=== PATIENT | male | born 1950 | race Caucasian/White ===

== ENCOUNTER 2016-05-04 07:03 | Day surgery (SDC) | payer MEDICARE, OTHER ==
[~2016-05-04] VITALS: Ht 170.2 cm; Wt 79.5 kg
[~2016-05-04 07:03] MED LIST: ACETAMINOPHEN500 M1 PO; LIPITOR40 MG PO; PRILOSEC20 MG PO; TYLENOL650 MG PO
[2016-05-04] MEDS ORDERED: LEVOTHYROXINE75 MCG PO (07:33)
[2016-05-04 07:38] VITALS: BP 124/76; Ht 170.2 cm; Wt 79.5 kg
[2016-05-04 08:40] LABS: BASOPHILS 0.4 % (0.0-2.0); EOSINOPHILS 2.4 % (0-7); HEMATOCRIT 45.6 % (42.0-54.0); HEMOGLOBIN 15.5 g/dL (13.5-17.5); IMMATURE GRANULOCYTES 0.1 % (0-5); LYMPHOCYTES 27.9 % (15-50); MCH 32.8 pg (26.0-34.0); MCV 96.6 fL (80.0-100.0); MEAN PLATELET VOLUME 10.1 fL (7.4-10.4); MONOCYTES 10.3 % (2-11); NEUTROPHILS 58.9 % (40-80); PLATELET COUNT 147 10x3/uL (130-400); RBC 4.72 10x6/uL (4.20-6.10); RDW 12.9 % (11.5-14.5); WBC 7.1 10x3/uL (4.8-10.8)
[2016-05-04 08:45] LABS: CALC OSMOLALITY 288 mosm/kg (275-300); CALCIUM 9.4 mg/dL (8.5-10.1); CARBON DIOXIDE 28.8 mmol/L (21.0-32.0); CHLORIDE - SERUM 107 mmol/L (98-107); GLUCOSE 93 mg/dL (74-106); POTASSIUM - SERUM 4.2 mmol/L (3.5-5.1); SODIUM 144 mmol/L (136-145); UREA NITROGEN 18 mg/dL (7-18); eGFR NON AFRICAN AMERICAN 79 mL/min (90-120)
--- NOTE | 2016-05-04 11:31 | NUR ---
1055 PT TO 9163 PER STRETCHER. ROUNDS BY DR. HERNANDEZ BEFORE PT.'S RETURN. PRODECURE FINDINGS DISCUSSED WITH MRS. HARPERFREDI. Donal DELGADO R.N.
--- NOTE | 2016-05-04 12:15 | NUR ---
1150 TOLERATED DIET WITHOUT NAUSEA OR EMESIS. IV DC'ED WITH CATH INTACT & 75ML LTC. DRESSING. @ BEDSIDE. Donal DELGADO R.N. 1205 AWAKE & ALERT. GIVEN DISCHARGE INSTRUCTIONS, MED REC., SHEET OF NSAIDS TO AVOID, RTC APPT., & PROCEDURE INFORMATION & DISCHARGE SHEET. PT VOICED UNDERSTANDING. TO PRIVATE CAR PER WHEELCHAIR BY VOLUNTEER. HOME WITH MRS. GARDUNO. Donal DELGADO R.N.
--- NOTE | 2016-05-11 13:47 | OP ---
PATIENT NAME: DORCAS GARDUNO MEDICAL RECORD: [id number] :49 LOCATION:D.OPS ADMISSION DATE: SURGEON: CLAUDE HERNANDEZ MD DATE OF OPERATION: 05/04/2016 PREOPERATIVE DIAGNOSES: 1. Gastroesophageal reflux disease. 2. Hypercholesterolemia. 3. Hypothyroidism. 4. Obstructive sleep apnea. POSTOPERATIVE DIAGNOSES: 1. Gastroesophageal reflux disease. 2. Hypercholesterolemia. 3. Hypothyroidism. 4. Obstructive sleep apnea. PROCEDURE: EGD. SURGEON: Claude Hernandez MD REPORT OF THE OPERATION: An Olympus endoscope was advanced through the mouth and esophagus. We were able to pass through the stomach and into the second portion of the duodenum. There was no sign of any inflammatory changes, ulcerations or masses in the duodenum. As we backed up, we were able to get a biopsy of the antrum of the stomach. Evaluation of the stomach showed a few hyperplastic polyps, but no masses, lesions or ulcerations. Retroflexed view of the GE junction showed the patient had a hiatal hernia, when measured out it was about 4 cm in length. The patient had a normal appearing Z line with no ulcerations of the distal esophagus. The biopsy was taken right at the GE junction at the Z line. At this point, the insufflation and the scope were removed as were back and out of the esophagus; I saw no sign of any strictures, ulcerations or masses. COMPLICATIONS: None. CONDITION: Stable. ANESTHESIA: TIVA. BLOOD LOSS: Minimal. TRANSINT:[id number] Voice Confirmation ID: [id number] DOCUMENT ID: [id number] CLAUDE HERNANDEZ MD at 1347 CC: NICHOLAS ALAN MD and JUSTINA NARVAEZ MD [id number] DICTATION DATE: 05/04/16 1021 USER SUPPORT ANALYST SUPERVISOR: 05/04/16 1032 [facility] 05/04/16 [facility] [address] [id number]
== END 2016-05-04 12:05 | disposition home or self-care (01) ==
LOC: D.OPS 07:03
PROVIDERS: Surgery
DX: K21.9 Gastro-esophageal reflux disease without esophagitis (principal); K31.7 Polyp of stomach and duodenum; K44.9 Diaphragmatic hernia without obstruction or gangrene; E78.00 Pure hypercholesterolemia, unspecified; E03.9 Hypothyroidism, unspecified; G47.33 Obstructive sleep apnea (adult) (pediatric)

== ENCOUNTER → 2016-05-10 08:20 | Outpatient (CLI) | payer MEDICARE, OTHER ==
[2016-05-04 07:38] VITALS: BMI 27.4
[~2016-05-10 08:20] MED LIST changes: +DAYQUIL; +HYDROCODONE-APA1 TAB PO; +LEVOTHYROXINE75 MCG PO; +PHENERGAN25 M1 PO; +REGLAN10 MG PO
== END | disposition home or self-care (01) ==
LOC: D.RAD 08:20
DX: K21.9 Gastro-esophageal reflux disease without esophagitis (principal)

== ENCOUNTER 2016-05-20 05:15 | Day surgery (SDC) | payer MEDICARE, OTHER ==
[2016-05-19 13:47] LABS: BASOPHILS 0.2 % (0.0-2.0); HEMATOCRIT 46.5 % (42.0-54.0); HEMOGLOBIN 15.9 g/dL (13.5-17.5); IMMATURE GRANULOCYTES 0.7 % (0-5); MCH 33.1 pg (26.0-34.0); MCHC 34.2 g/dL (31.0-37.0); MCV 96.9 fL (80.0-100.0); MEAN PLATELET VOLUME 9.7 fL (7.4-10.4); MONOCYTES 6.6 % (2-11); NEUTROPHILS 62.5 % (40-80); PLATELET COUNT 172 10x3/uL (130-400); RDW 13.1 % (11.5-14.5); WBC 10.4 10x3/uL (4.8-10.8)
[2016-05-19 14:02] LABS: CALCIUM 8.7 mg/dL (8.5-10.1); CARBON DIOXIDE 30.1 mmol/L (21.0-32.0); CREATININE - SERUM 1.1 mg/dL (0.6-1.3); POTASSIUM - SERUM 4.1 mmol/L (3.5-5.1)
[~2016-05-20] VITALS: Ht 170.2 cm; Wt 79.5 kg
[~2016-05-20 05:15] MED LIST changes: -DAYQUIL; -HYDROCODONE-APA1 TAB PO; -PHENERGAN25 M1 PO; -REGLAN10 MG PO
[2016-05-20] MEDS ORDERED: DAYQUIL (06:01)
[2016-05-20 06:02] VITALS: BP 115/77; BMI 27.4
--- NOTE | 2016-05-20 08:47 | NUR ---
SAFETY STRAP STRAPPED UNDER BUTTOCKS FOR ADDED SUPPORT DURING REVERSE TRENDELENBERG
[2016-05-20 11:08] VITALS: BP 139/69
--- NOTE | 2016-05-20 11:08 | NUR ---
RECEIVED TO ROOM 2205 FROM RECOVERY ROOM VIA BED. VSS. DENIES PAIN. CALL LIGHT IN REACH. SCDs TO BLE. IS GIVEN TO PATIENT AND EXPLAINED USE. WILL CONTINUE WITH PLAN OT CARE.
--- NOTE | 2016-05-20 11:31 | NUR ---
NEW MEDS ADMINISTERED PER ORDER. DENIES PAIN BUT STATES A LITTLE DISCOMFORT AT A SCALE OF 2/10.
--- NOTE | 2016-05-20 12:24 | NUR ---
DILAUDID WHANAU SUPPORT WORKER INITIATED PER MD ORDER. CALL LIGHT IN REACH.
[2016-05-20 12:30] VITALS: BP 134/69
[2016-05-20 13:00] VITALS: BP 139/69; Ht 170.2 cm; Wt 79.5 kg
--- NOTE | 2016-05-20 14:50 | NUR ---
RESTING WITH EYES CLOSED. RESP EVEN AND UNLABORED. CALL LIGHT IN REACH.
--- NOTE | 2016-05-20 16:20 | NUR ---
AMBULATED IN BR WITH STANDBY ASSIST FROM PERCHER. VOIDED IN TOILET WITHOUT USING URINAL. PERCHER STATES PATIENT VOIDED ALOT.
--- NOTE | 2016-05-20 17:01 | NUR ---
EVENING IV MEDS ADMINISTERED. MOUTH MOISTURIZER KIT GIVEN TO PATIENT D/T DRY MOUTH. RECLINER TAKEN INTO ROOM FOR . CALL LIGHT IN REACH.
--- NOTE | 2016-05-20 17:47 | NUR ---
PATIENT IS AWAKE, ALERT AND ORIENTED X'S 4. DENIES NEEDS. NO SIGNS OF DISTRESS NOTED. BED IN LOWEST POSITION, CALL LIGHT IN REACH. BED RAILS UP X'S 2.
--- NOTE | 2016-05-20 18:53 | NUR ---
NO CHANGES IN INITIAL ASSESSMENT. SCDs TO BLE. CALL LIGHT IN REACH. WILL CONTINUE WITH PLAN OF CARE.
[2016-05-20 20:00] VITALS: BP 112/69
[2016-05-21] VITALS: BP 123/60
[2016-05-21 04:00] VITALS: BP 104/61
--- NOTE | 2016-05-21 04:29 | NUR ---
PATIENT SLEEPING WITH NO DISTRESS NOTED. AGREE WITH SUPERCHARGE REPAIR SUPERVISOR ASSESSMENT.
[2016-05-21 05:47] LABS: BASOPHILS 0.1 % (0.0-2.0); EOSINOPHILS 0 % (0-7); HEMATOCRIT 40.3 % (42.0-54.0); HEMOGLOBIN 13.5 g/dL (13.5-17.5); IMMATURE GRANULOCYTES 0.3 % (0-5); LYMPHOCYTES 8.2 % (15-50); MCH 32.6 pg (26.0-34.0); MCHC 33.5 g/dL (31.0-37.0); MCV 97.3 fL (80.0-100.0); MEAN PLATELET VOLUME 9.4 fL (7.4-10.4); MONOCYTES 6.5 % (2-11); NEUTROPHILS 84.9 % (40-80); RBC 4.14 10x6/uL (4.20-6.10); RDW 13.4 % (11.5-14.5)
[2016-05-21 05:59] LABS: CALC OSMOLALITY 279 mosm/kg (275-300); CALCIUM 8.3 mg/dL (8.5-10.1); CARBON DIOXIDE 25.6 mmol/L (21.0-32.0); CHLORIDE - SERUM 106 mmol/L (98-107); CREATININE - SERUM 0.9 mg/dL (0.6-1.3); GLUCOSE 116 mg/dL (74-106); POTASSIUM - SERUM 4.4 mmol/L (3.5-5.1); SODIUM 139 mmol/L (136-145); eGFR NON AFRICAN AMERICAN 89 mL/min (90-120)
[2016-05-21 06:01] LABS: PLATELET COUNT 137 10x3/uL (130-400); WBC 17.2 10x3/uL (4.8-10.8)
[2016-05-21 06:05] LABS: UREA NITROGEN 15 mg/dL (7-18)
--- NOTE | 2016-05-21 07:00 | NUR ---
REPORT RECEIVED FROM PHYSICAL SCIENCES PROFESSOR NURSE. CALL LIGHT IN REACH.
[2016-05-21 07:55] VITALS: BP 98/55
--- NOTE | 2016-05-21 08:35 | NUR ---
ASSESSMENT COMPLETED. SCDs TO BLE. IS IN USE. CALL LIGHT IN REACH. WILL CONTINUE WITH PLAN OF CARE.
--- NOTE | 2016-05-21 09:07 | NUR ---
ASSESSMENT COMPLETED. AM MEDS ADMINISTERED. SUSANNA MAT ALARM ON. FAMILY IN ROOM. REPOSITIONED ON LEFT SIDE. CALL LIGHT IN REACH. WILL CONTINUE WITH PLAN OF CARE.
--- NOTE | 2016-05-21 10:00 | NUR ---
QUIET IN ROOM AT PRESENT DENIES ANY NEEDS AT PRESENT.
--- NOTE | 2016-05-21 10:34 | NUR ---
ANALAN SIVP PER ORDER. SCOPOLAMINE PATCH DC'D. IV SL' AND LIGHT INDUSTRIAL SUPERVISOR DC'D PER ORDER. GLASS OF ICE WATER BROUGHT TO PATIENT.
[2016-05-21 11:29] VITALS: BP 144/51
--- NOTE | 2016-05-21 12:50 | NUR ---
AMBULATED IN HALLWAY ADLIB WITH STANDBY ASSIST. ALSO ABLE TO EAT 100% OF CLEAR LIQUID DIET AND KEEP IT DOWN WITH NO NAUSEA OR VOMITING.
[2016-05-21] MEDS ORDERED: PHENERGAN25 M1 PO (13:39)
[2016-05-21] MEDS ORDERED: REGLAN10 MG PO (13:39)
[2016-05-21] MEDS ORDERED: HYDROCODONE-APA1 TAB PO (13:39)
--- NOTE | 2016-05-21 14:10 | NUR ---
IV DC'D WITH TIP INTACT.
--- NOTE | 2016-05-21 15:59 | NUR ---
DC INSTRUCTIONS EXPLAINED TO PATIENT AND . VERBALIZED UNDERSTANDING. RX FOR NORCO HANDED TO PATIENT. DC'D TO VEHICLE WITH . REFUSED WC.
--- NOTE | 2016-05-21 16:25 | OP ---
PATIENT NAME: DORCAS GARDUNO MEDICAL RECORD: [id number] :48 LOCATION:D.OPS ADMISSION DATE: SURGEON: CLAUDE HERNANDEZ MD DATE OF OPERATION: 05/20/2016 PREOPERATIVE DIAGNOSES: 1. Hiatal hernia. 2. Gastroesophageal reflux disease. 3. Hypothyroidism. 4. Hypercholesterolemia. 5. Obstructive sleep apnea. POSTOPERATIVE DIAGNOSES: 1. Hiatal hernia. 2. Gastroesophageal reflux disease. 3. Hypothyroidism. 4. Hypercholesterolemia. 5. Obstructive sleep apnea. PROCEDURE: Laparoscopic hiatal hernia repair with Ulises fundoplication. SURGEON: Claude Hernandez MD. REPORT OF PROCEDURE: The patient's abdomen was prepped and draped in sterile fashion. A Veress needle was inserted in the left upper quadrant and the abdomen was insufflated. An 11-mm Visiport trocar was inserted in the abdomen in the midline just above the umbilicus. Under direct visualization, the Veress needle was visualized and we could see that there was no sign of any injury to the bowel or surrounding structures. A 12-mm trocar was placed in the left subcostal region, a 5-mm trocar was placed in the epigastrium, a 5-mm trocar was placed in the right lateral subcostal region and a final 5-mm trocar was placed in the left lateral abdomen at the level of the umbilicus. The patient had a moderate-sized hiatal hernia. This easily would retract down into the abdominal cavity, but on releasing the stomach, it would fall back into the thoracic cavity. Approximately 1/4 of the stomach was elevated up into the thoracic cavity. We started our dissection in the lesser omentum and took this down using Harmonic scalpel. This dissection was continued up to the right side of the right lydia. We freed up the right side of the right lydia and entered the thoracic cavity and freed up the hernia sac surrounding the patient's stomach and esophagus. We continued this dissection anteriorly and posteriorly. Once we had gone as far as we could then we went to the greater curvature of the stomach and took down the short gastrics using Harmonic scalpel. This was continued to the left side of the right lydia. The left side of the right lydia was dissected free and the hernia sac was removed up into the thoracic cavity. At this point, the patient's esophagus was visible in a 360 degree inspection, we could see completely up into the thoracic cavity and after we had released the stomach and its attachments, it fell easily into the abdominal cavity. The esophageal hiatus was then reapproximated with interrupted 0 Polydek times 3. We then performed a 360-degree posterior wrap. The fundus of the stomach was pulled posteriorly around the distal end of the esophagus and sutured into place using interrupted 0 Polydek times 3. The top of the bottom suture incorporated a bite of the esophagus. At this point, our wrap was complete, we irrigated out the abdomen and assured there was no sign of any bleeding, which there was none. At this point, the liver retractor, which was holding up the left side of the liver was removed. The 11 and 12-mm trocar site fascias were then closed with 0 OPERATIVE REPORT [id number] DORCAS GARDUNO Vicryl using a Sebastien-Piotr suture passer device. The ports and insufflation were then removed. At this point, the skin incisions were infused with a total of 20 mL of 0.25% Marcaine with epinephrine and then skin incisions were all closed with subcutaneous 5-0 Monocryl. COMPLICATIONS: None. CONDITION: Stable. ANESTHESIA: General endotracheal and local. BLOOD LOSS: Minimal. TRANSINT:[id number] Voice Confirmation ID: [id number] DOCUMENT ID: [id number] CLAUDE HERNANDEZ MD at 1625 CC: NICHOLAS ALAN MD and JUSTINA NARVAEZ MD [id number] DICTATION DATE: 05/20/16 1013 [employer]S RIDER: 05/20/16 1106 [facility] 05/21/[address] [id number]
== END 2016-05-21 15:59 | disposition home or self-care (01) ==
LOC: D.OPS 05:15 → D.MS 05:15 → D.OPS 07:30 → D.PAN 07:30 → D.MS 10:04 → D.OPS 05-21 15:59
PROVIDERS: Surgery
DX: K44.9 Diaphragmatic hernia without obstruction or gangrene (principal); K21.9 Gastro-esophageal reflux disease without esophagitis; E03.9 Hypothyroidism, unspecified; E78.00 Pure hypercholesterolemia, unspecified; G47.33 Obstructive sleep apnea (adult) (pediatric)

== ENCOUNTER → 2019-06-21 08:31 | Outpatient (CLI) | payer MEDICARE, OTHER ==
[2016-05-20 13:00] VITALS: BMI 27.4
[~2019-06-21 08:31] MED LIST changes: +DAYQUIL; +HYDROCODONE-APA1 TAB PO; +PHENERGAN25 M1 PO; +REGLAN10 MG PO
[2019-06-21 09:24] LABS: ALBUMIN 3.9 g/dL (3.4-5.0); ALKALINE PHOSPHATASE 71 U/L (30-120); ALT (SGPT) 29 U/L (10-68); BILIRUBIN - TOTAL 1.55 mg/dL (0.2-1.3); CALC OSMOLALITY 282 mosm/kg (275-300); CALCIUM 8.9 mg/dL (8.5-10.1); CARBON DIOXIDE 29.4 mmol/L (21.0-32.0); CHLORIDE - SERUM 106 mmol/L (98-107); CREATININE - SERUM 0.9 mg/dL (0.6-1.3); GLUCOSE 109 mg/dL (74-106); POTASSIUM - SERUM 4.3 mmol/L (3.5-5.1); PROTEIN - SERUM 7.4 g/dL (6.4-8.2); SODIUM 140 mmol/L (136-145); UREA NITROGEN 22 mg/dL (7-18); eGFR NON AFRICAN AMERICAN 89 mL/min (90-120)
== END | disposition home or self-care (01) ==
LOC: D.US 08:30
PROVIDERS: ATTEND Family Medicine
DX: R10.11 Right upper quadrant pain (principal)

== ENCOUNTER 2019-08-10 06:25 | Day surgery (SDC) | payer MEDICARE, OTHER ==
[~2019-08-10] VITALS: Ht 170.2 cm; Wt 79.5 kg
--- NOTE | ~2019-08-10 | OP ---
PATIENT NAME: DORCAS GARDUNO MEDICAL RECORD: [id number] :48 LOCATION:D.OPS ADMISSION DATE: SURGEON: CLAUDE HERNANDEZ MD DATE OF OPERATION: 08/10/2019 PREOPERATIVE DIAGNOSES: 1. Gallstones. 2. Hypothyroidism. 3. Hypercholesterolemia. 4. Gastroesophageal reflux disease. 5. Guillain-Walnut syndrome. POSTOPERATIVE DIAGNOSES: 1. Gallstones. 2. Hypothyroidism. 3. Hypercholesterolemia. 4. Gastroesophageal reflux disease. 5. Guillain-Walnut syndrome. PROCEDURE: Laparoscopic cholecystectomy. SURGEON: Claude Hernandez MD REPORT OF PROCEDURE: The patient's abdomen was prepped and draped in sterile fashion. A cutdown was made on the superior aspect of the umbilicus, 0 Vicryls were placed in the fascia bilaterally and the fascia was incised with 15-blade. I then bluntly entered the peritoneal cavity and placed a 12-mm Malcolm port. Under direct visualization, a 5-mm trocar was placed in the epigastrium and two more 5-mm trocars were placed in the right subcostal region. The gallbladder was grasped and elevated. There were some inflammatory adhesions of the fatty tissue attached to it. These were all taken down with blunt dissection. The gallbladder was distended, so we had to access the gallbladder fundus with a needle and suctioned out some of the bilious contents. This made it much more easy to grasp. We then were able to dissect out the patient's cystic duct. The cystic artery was very close to this and these 2 structures were clipped proximally and distally and ligated in standard fashion. The gallbladder was then taken off the liver bed using electrocautery and placed into the right upper quadrant. Any bleeding from the liver bed was then treated with electrocautery. At this point, the ports and insufflation were then removed and the gallbladder was taken out through the umbilicus. The umbilical fascia was closed with interrupted 0 Vicryls times 3. The wounds were then irrigated out with normal saline and infused with 10 mL of 0.25% Marcaine with epinephrine. The skin incisions were all closed with subcutaneous 5-0 Monocryl and dressed appropriately. COMPLICATIONS: None. CONDITION: Stable. ANESTHESIA: General endotracheal and local. BLOOD LOSS: Minimal. TRANSINT:[id number] Voice Confirmation ID: [id number] DOCUMENT ID: [id number] OPERATIVE REPORT [id number] DORCAS GARDUNO CHRISTIAN MD CC: JUSTINA NARVAEZ MD [id number] DICTATION DATE: 08/10/19 1020 ENAMEL SPRAYER: 08/10/19 1321 [facility] [address] [id number]
[~2019-08-10 06:25] MED LIST changes: +PROPRANOLOL HCL20 MG PO
[2019-08-10 07:01] LABS: CALC OSMOLALITY 282 mosm/kg (275-300); CALCIUM 8.8 mg/dL (8.5-10.1); CHLORIDE - SERUM 104 mmol/L (98-107); CREATININE - SERUM 0.9 mg/dL (0.6-1.3); GLUCOSE 114 mg/dL (74-106); POTASSIUM - SERUM 4.2 mmol/L (3.5-5.1); SODIUM 139 mmol/L (136-145); UREA NITROGEN 24 mg/dL (7-18); eGFR NON AFRICAN AMERICAN 89 mL/min (90-120)
[2019-08-10 07:14] LABS: BASOPHILS 0.5 % (0-2); EOSINOPHILS 2.9 % (0-7); HEMATOCRIT 46.2 % (42.0-54.0); HEMOGLOBIN 15.1 g/dL (13.5-17.5); IMMATURE GRANULOCYTES 0.2 % (0-5); LYMPHOCYTES 31.5 % (15-50); MCH 32.5 pg (26.0-34.0); MCHC 32.7 g/dL (31.0-37.0); MCV 99.6 fL (80.0-100.0); MEAN PLATELET VOLUME 9.3 fL (7.4-10.4); MONOCYTES 10.1 % (2-11); NEUTROPHILS 54.8 % (40-80); RBC 4.64 10x6/uL (4.20-6.10); RDW 12.8 % (11.5-14.5); WBC 6.2 10x3/uL (4.8-10.8)
[2019-08-10 07:27] LABS: PLATELET COUNT 172 10x3/uL (130-400)
[2019-08-10 07:35] VITALS: BP 123/79; Ht 170.2 cm; Wt 79.5 kg
[2019-08-10] MEDS ORDERED: HYDROCODON-ACE1 EA10 PO (10:15)
--- NOTE | 2019-08-10 11:11 | NUR ---
FULL LIQUID TRAY TO ROOM
--- NOTE | 2019-08-10 15:40 | NUR ---
1215-DISCHARGE CRITERIA MET. REMOVED IV WITH CATH INTACT, DISPOSED INTO SHARPS,COVERED WITH GUAZE,SECURED WITH BANDAID.
--- NOTE | 2019-08-10 15:41 | NUR ---
1233-REVIEWED POST OPERATIVE INSTRUCTIONS AND INSTRUCTED PT TO CALL DR. HERNANDEZ'S OFFICE TUESDAY TO CONFIRM FOLLOW UP DUE TO OFFICE BEING CLOSED TODAY. VERBALIZED UNDERSTANDING. ESCORTED OUT VIA W/C WITH FRIEND AWAITING TO DRIVE HOME
== END 2019-08-10 12:33 | disposition home or self-care (01) ==
LOC: D.OPS 06:25
PROVIDERS: ATTEND Surgery
DX: K80.20 Calculus of gallbladder without cholecystitis without obstruction (principal); E03.9 Hypothyroidism, unspecified; E78.00 Pure hypercholesterolemia, unspecified; G61.0 Guillain-Barre syndrome; K21.0 Gastro-esophageal reflux disease with esophagitis